=== PATIENT | female | born 1960 | race Caucasian/White ===

== ENCOUNTER → 2024-04-09 08:45 | Outpatient (REF) | payer BC, SELFPAY | LOC: PAVMRI 08:45 | PROVIDERS: ATTENDING PHYSICIAN Orthopaedic Surgery; FAMILY PHYSICIAN Family Medicine | DX: M25.562 Pain in left knee (principal) | CPT/HCPCS: 73721 ==

== ENCOUNTER → 2024-05-31 06:20 | Day surgery (SDC) | payer BC, SELFPAY | LOC: GI 06:20 | PROVIDERS: ATTENDING PHYSICIAN Internal Medicine Gastroenterology | DX: K22.2 Esophageal obstruction (principal); K44.9 Diaphragmatic hernia without obstruction or gangrene; K31.A11 Gastric intestinal metaplasia without dysplasia, involving the antrum; K21.9 Gastro-esophageal reflux disease without esophagitis | CPT/HCPCS: 43239; 88305; 88342 ==

== ENCOUNTER 2025-06-03 06:23 | Day surgery (SDC) | payer BC, SELFPAY | END 2025-06-03 10:03 | disposition home or self-care (01) | LOC: GI 06:23 | PROVIDERS: ATTENDING PHYSICIAN Internal Medicine Gastroenterology | DX: K44.9 Diaphragmatic hernia without obstruction or gangrene (principal); K31.A0 Gastric intestinal metaplasia, unspecified; K31.89 Other diseases of stomach and duodenum | CPT/HCPCS: 43239; 88305; 88342 ==